=== PATIENT | female | born 1965 | race Caucasian/White ===

== ENCOUNTER → 2016-08-19 | Outpatient (CLI) | payer OTHER ==
[~2016-08-19] MED LIST: METHACHOLINE KIT (J7674) INH ONE
== END | disposition home or self-care (01) ==
LOC: M CARPUL 15:10
PROVIDERS: ATTEND Internal Medicine Pulmonary Disease
DX: R05 Cough (principal)

== ENCOUNTER → 2018-05-17 | Outpatient (REF) | payer OTHER | LOC: M LABDRAWP 17:17 | DX: L73.9 Follicular disorder, unspecified (principal) ==

== ENCOUNTER → 2020-07-24 | Outpatient (CLI) | payer SELFPAY | LOC: M LABSMTC 10:14 | PROVIDERS: ATTEND Pediatrics | DX: Z20.822 Contact with and (suspected) exposure to COVID-19 (principal) ==

== ENCOUNTER → 2021-02-19 | Outpatient (CLI) | payer OTHER ==
--- NOTE | 2021-02-19 16:46 | REP ---
INDICATION: PAIN RIGHT KNEE COMPARISON: The images from a prior study dated 06/25/2010 do not display, for reasons unknown to this examiner. TECHNIQUE: There are five views. FINDINGS: There is moderate osteoarthritis of the medial and lateral compartments. The patellofemoral compartment is unremarkable. There is a suprapatellar effusion. There is no fracture or dislocation. There are no calcifications or foreign bodies. IMPRESSION: Moderate medial and lateral compartment osteoarthritis. Suprapatellar effusion. <Electronically signed by Scotty Hopper > 02/19/21 1232
== END ==
LOC: M PLAIMG 14:35
PROVIDERS: ATTEND Physician Assistant
DX: M17.11 Unilateral primary osteoarthritis, right knee (principal)

== ENCOUNTER → 2021-06-24 | Outpatient (CLI) | payer OTHER | LOC: M LABSMTC 12:40 | PROVIDERS: ATTEND Pediatrics | DX: Z20.822 Contact with and (suspected) exposure to COVID-19 (principal) ==

== ENCOUNTER → 2022-01-14 | Outpatient (CLI) | payer OTHER | LOC: M WHC 14:37 | PROVIDERS: ATTEND Physician Assistant | DX: Z12.31 Encounter for screening mammogram for malignant neoplasm of breast (principal); M81.0 Age-related osteoporosis without current pathological fracture ==

== ENCOUNTER → 2022-08-25 | Outpatient (CLI) | payer OTHER ==
[~2022-08-25] MED LIST changes: +DULE100A INH; -METHACHOLINE KIT (J7674) INH ONE
== END ==
LOC: M LABSMTC 10:45
PROVIDERS: ATTEND Anesthesiology
DX: Z01.812 Encounter for preprocedural laboratory examination (principal); Z11.52 Encounter for screening for COVID-19

== ENCOUNTER → 2022-08-25 | Outpatient (CLI) | payer OTHER ==
[~2022-08-25] MED LIST changes: +MELO15TA28 PO
== END ==
LOC: M RAD 14:20
PROVIDERS: ATTEND Nurse Practitioner Adult Health
DX: R05.9 Cough, unspecified (principal)

== ENCOUNTER 2022-08-27 06:04 | Observation (INO) | payer OTHER ==
[~2022-08-27] VITALS: Ht 167.6 cm; Wt 85.7 kg
[~2022-08-27 06:04] MED LIST changes: +CLINDAMYCIN 900 MG in IV 1 EA IV ONE; +HEPARIN SOD (PORCINE) 5000UNITS/ML 1ML VIAL/SYRINGE SQ ONE; -MELO15TA28 PO
[2022-08-27] MEDS ORDERED: MELO15TA28 PO (06:40)
[2022-08-27] MEDS ORDERED: LR 1,000 ML IV SCH ×2 (07:15→11:30)
[2022-08-27] MEDS ORDERED: SCOPOLAMINE 1MG TRANSDERMAL PATCH TOP ONE (07:20)
[2022-08-27] MEDS ORDERED: BUPIVACAINE HCL 0.25% 10ML VIAL As Ordered ONE (07:25)
[2022-08-27] MEDS ORDERED: GENTAMICIN SULF 80MG/2ML VIAL As Ordered ONE (07:25)
[2022-08-27] MEDS ORDERED: BUPIVACAINE LIPOSOME/PF 1.3% 20ML VIAL (13.3MG/ML)(EXPAREL) As Ordered ONE (07:25)
[2022-08-27] MEDS ORDERED: ONDANSETRON 4MG 2ML VIAL As Ordered ONE (11:22)
[2022-08-27] MEDS ORDERED: fentaNYL 250 MCG/5 ML INJECTION As Ordered ONE (11:22)
[2022-08-27] MEDS ORDERED: DESFLURANE 240 ML INHALANT As Ordered ONE (11:22)
[2022-08-27] MEDS ORDERED: propofoL 200 MG/20 ML VIAL As Ordered ONE (11:22)
[2022-08-27] MEDS ORDERED: METOCLOPRAMIDE INJ 10MG/2ML VIAL As Ordered ONE (11:22)
[2022-08-27] MEDS ORDERED: MIDAZOLAM INJ 2MG/2ML VIAL As Ordered ONE (11:22)
[2022-08-27] MEDS ORDERED: LIDOCAINE 2% 100MG/5ML SDV (FOR ANES.) As Ordered ONE (11:22)
[2022-08-27] MEDS ORDERED: HYDROmorphone HCL 2MG/ML 1ML VIAL As Ordered ONE (11:22)
[2022-08-27] MEDS ORDERED: ROCURONIUM BROMIDE 50MG/5ML VIAL As Ordered ONE (11:22)
[2022-08-27] MEDS ORDERED: SUGAMMADEX SODIUM 500 MG/5 ML VIAL (BRIDION) As Ordered ONE (11:22)
[2022-08-27] MEDS ORDERED: fentaNYL 100 MCG/2 ML INJECTION IV PRN (11:30)
[2022-08-27] MEDS ORDERED: oxyCODONE 5MG TAB PO PRN (11:30)
[2022-08-27] MEDS ORDERED: MEPERIDINE 25 MG/ML 1ML VIAL IV PRN (11:30)
[2022-08-27] MEDS ORDERED: ONDANSETRON 4MG 2ML VIAL IV PRN ×2 (11:30→11:45)
[2022-08-27] MEDS ORDERED: ACETAMINOPHEN TAB 650MG DOSE (2X325MG) PO PRN (11:45)
[2022-08-27 15:00] VITALS: BP 128/76
[2022-08-27] MEDS: LR 1,000 ML IV SCH (15:18)
[2022-08-27 15:30] VITALS: BP 125/72
[2022-08-27] MEDS: PERCOCET 5MG/325MG TAB PO PRN (15:31)
[2022-08-27 16:00] VITALS: BP 125/71
[2022-08-27 17:00] VITALS: BP 109/61
[2022-08-27 18:00] VITALS: BP 123/57
[2022-08-27 20:36] VITALS: BP 121/64
[2022-08-28] MEDS: PERCOCET 5MG/325MG TAB PO PRN (00:17)
[2022-08-28] MEDS: LR 1,000 ML IV SCH (00:17)
[2022-08-28 02:22] VITALS: BP 116/60
[2022-08-28 05:49] VITALS: BP 113/60
[2022-08-28] MEDS: traMADol 50 MG TAB PO PRN ×2 (06:24→13:13)
[2022-08-28] MEDS ORDERED: TRAM50TA2 PO (08:42)
[2022-08-28 10:00] VITALS: BP 117/63
== END 2022-08-28 13:17 | disposition home or self-care (01) ==
LOC: M SDC 06:04 → M MS5PR 06:05
PROVIDERS: ADMIT Plastic Surgery Surgery of the Hand; ATTEND Plastic Surgery Surgery of the Hand
DX: N62 Hypertrophy of breast (principal); M54.6 Pain in thoracic spine; M50.20 Other cervical disc displacement, unspecified cervical region; M19.90 Unspecified osteoarthritis, unspecified site; J45.909 Unspecified asthma, uncomplicated; Z88.1 Allergy status to other antibiotic agents; Z88.0 Allergy status to penicillin; Z79.899 Other long term (current) drug therapy; Z79.1 Long term (current) use of non-steroidal anti-inflammatories (NSAID)
CPT/HCPCS: 19318; 88305; 96374; C9290; J1100; J1170; J1580; J1644; J2250; J2405; J2765; J3010; S0020; S0077

== ENCOUNTER 2023-04-16 06:46 | Day surgery (SDC) | payer OTHER ==
[~2023-04-16] VITALS: Ht 162.6 cm; Wt 83.5 kg
[~2023-04-16 06:46] MED LIST changes: +B-12100010 PO; -CLINDAMYCIN 900 MG in IV 1 EA IV ONE; +CURC500C2 PO; -DULE100A INH; +EQL50TAB2 PO; -HEPARIN SOD (PORCINE) 5000UNITS/ML 1ML VIAL/SYRINGE SQ ONE; +MELO15TA28 PO; +MOME13HF8 INH; +NS 1,000 ML IV ONE; +TRAM50TA2 PO; +VITA100093 PO
[2023-04-16] MEDS ORDERED: propofoL 200 MG/20 ML VIAL As Ordered ONE (07:16)
[2023-04-16] MEDS ORDERED: LIDOCAINE 2% 100MG/5ML SDV (FOR ANES.) As Ordered ONE (07:16)
[2023-04-16 07:55] VITALS: TEMP 97.6
[2023-04-16 08:10] VITALS: BP 122/70; O2SAT 96
== END 2023-04-16 08:16 | disposition home or self-care (01) ==
LOC: M OPP 06:46
PROVIDERS: ATTEND Surgery
DX: Z12.11 Encounter for screening for malignant neoplasm of colon (principal); Z80.0 Family history of malignant neoplasm of digestive organs; K51.40 Inflammatory polyps of colon without complications; K57.30 Diverticulosis of large intestine without perforation or abscess without bleeding; Z79.51 Long term (current) use of inhaled steroids; Z79.899 Other long term (current) drug therapy; Z88.0 Allergy status to penicillin; Z88.1 Allergy status to other antibiotic agents